=== PATIENT | male | born 1940 | race Caucasian/White ===

== ENCOUNTER 2016-12-03 19:29 | Emergency (ER) | payer MEDICARE ==
[~2016-12-03] VITALS: Ht 162.5 cm; Wt 48.1 kg
[~2016-12-03 19:29] MED LIST: AUGMENTIN 875 M1 TAB PO; BACTRIM DS 8001 TA1 PO; CIPRO250 MG PO; DARVOCET N 1001 TAB PO; DIAZEPAM5 MG PO; DOXYCYCLINE MO100 MG PO; METOCLOPRAMIDE5 MG PO; MIRALAX POWDER17 G1 PO; ORASONE5 MG PO; OXYCOD/APAP TAB 10- PO; PERCOCET 325 MG1 TAB PO; PYRIDIUM200 MG PO; TRAMADOL HCL50 MG PO; UNSURE OF MEDS; XANAX0.5 MG PO; XANAX1 MG PO
[2016-12-03] MEDS ORDERED: ANAPROX DS550 MG PO (22:54)
[2016-12-03] MEDS ORDERED: Orphenadrine C100 MG PO (22:54)
== END 2016-12-03 23:36 | disposition home or self-care (01) ==
LOC: ED 19:29
DX: M51.36 Other intervertebral disc degeneration, lumbar region (principal); R59.0 Localized enlarged lymph nodes; M79.604 Pain in right leg; F17.200 Nicotine dependence, unspecified, uncomplicated; Z79.899 Other long term (current) drug therapy; Z88.5 Allergy status to narcotic agent; Z86.718 Personal history of other venous thrombosis and embolism

== ENCOUNTER → 2016-12-07 | Outpatient (CLI) | payer MEDICARE ==
[~2016-12-07] MED LIST changes: +ANAPROX DS550 MG PO; +Orphenadrine C100 MG PO
[2016-12-07 08:19] LABS: BASO % 0.4 % (0.0-1.0); EOS # 0.3 10*3/uL (0.0-0.4); EOS % 3.4 % (1.0-4.0); HEMATOCRIT 48.6 % (42.0-52.0); HEMOGLOBIN 16.1 g/dl (14.0-18.0); LYMPH # 2.4 10*3/uL (1.3-4.4); LYMPH % 29.6 % (27.0-41.0); MEAN CELL VOLUME 91.5 fl (80.0-94.0); MEAN CORPUSCULAR HGB 30.3 pg (27.0-31.0); MEAN CORPUSCULAR HGB CONC 33.1 g/dl (33.0-37.0); MEAN PLATELET VOLUME 9.2 fl (9.6-12.3); MONO # 0.5 10*3/uL (0.1-1.0); MONO % 5.9 % (3.0-9.0); NEUT # 4.9 10*3/uL (2.3-7.9); NEUT % 60.5 % (47.0-73.0); PLATELET COUNT AUTOMATED 239 10*3/uL (130-400); RED BLOOD COUNT 5.31 10*6/uL (4.50-5.90); RED CELL DISTRI WIDTH 14.4 % (0-14.5)
[2016-12-07 08:48] LABS: ALBUMIN 3.4 gm/dl (3.1-4.5); ALKALINE PHOSPHATASE 84 U/L (45-117); BUN 16 mg/dl (7-24); CHLORIDE 106 mmol/L (98-107); CREATININE 1.01 mg/dL (0.70-1.30); POTASSIUM 4.4 mmol/L (3.5-5.1); SGOT/AST 12 IU/L (3-35); SGPT/ALT 9 U/L (12-78); SODIUM 138 mmol/L (136-145); TOTAL PROTEIN 7.4 gm/dL (6.4-8.2)
== END | disposition home or self-care (01) ==
LOC: LAB 07:52 → CT 08:00
PROVIDERS: Urology
DX: S33.39XA Dislocation of other parts of lumbar spine and pelvis, initial encounter (principal); C67.9 Malignant neoplasm of bladder, unspecified; D40.0 Neoplasm of uncertain behavior of prostate; M47.896 Other spondylosis, lumbar region; M41.86 Other forms of scoliosis, lumbar region; Y99.8 Other external cause status; Y92.89 Other specified places as the place of occurrence of the external cause; Y93.89 Activity, other specified; X58.XXXA Exposure to other specified factors, initial encounter

== ENCOUNTER → 2019-12-09 | Outpatient (CLI) | payer OTHER ==
[~2019-12-09] MED LIST changes: +ELIQUIS5 M1 PO; +TEMAZEPAM30 MG PO
== END | disposition home or self-care (01) ==
LOC: RAD 12:06 → LAB 12:06
PROVIDERS: ATTEND Nurse Practitioner Family
DX: H57.12 Ocular pain, left eye (principal)

== ENCOUNTER 2020-11-16 03:51 | Emergency (ER) | payer OTHER ==
[~2020-11-16] VITALS: Ht 162.5 cm; Wt 45.4 kg
[2020-11-16 04:14] LABS: BASO % 0.1 % (0.0-1.0); EOS % 0.3 % (1.0-4.0); HEMATOCRIT 41.1 % (42.0-52.0); LYMPH # 3.5 10*3/uL (1.3-4.4); LYMPH % 28.8 % (27.0-41.0); MEAN CELL VOLUME 97.6 fl (80.0-94.0); MEAN CORPUSCULAR HGB 30.2 pg (27.0-31.0); MEAN CORPUSCULAR HGB CONC 30.9 g/dl (33.0-37.0); MONO # 0.7 10*3/uL (0.1-1.0); MONO % 5.9 % (3.0-9.0); NEUT # 7.9 10*3/uL (2.3-7.9); NEUT % 64.6 % (47.0-73.0); PLATELET COUNT AUTOMATED 306 10*3/uL (130-400); RED BLOOD COUNT 4.21 10*6/uL (4.50-5.90); RED CELL DISTRI WIDTH 17.3 % (0-14.5); WHITE BLOOD COUNT 12.2 10*3/uL (4.8-10.8)
[2020-11-16 04:29] LABS: BUN 17 mg/dl (7-24); CHLORIDE 106 mmol/L (98-107); CREATININE 0.65 mg/dL (0.70-1.30); SODIUM 138 mmol/L (136-145)
[2020-11-16 06:17] LABS: BILIRUBIN Negative (Negative); BLOOD Trace-Intact (Negative); CLARITY Clear (Clear); COLOR Yellow (Yellow); GLUCOSE Negative (Negative); KETONE Negative (Negative); LEUKO ESTERASE Negative (Negative); NITRITE Negative (Negative)
[2020-11-16 06:38] LABS: RBC 0-2 rbc/hpf (0-2)
[2020-11-16 06:39] LABS: BACTERIA 1+; EPITHELIAL CELLS 0-2
== END 2020-11-16 07:38 | disposition home or self-care (01) ==
LOC: ED 03:51
PROVIDERS: Internal Medicine
DX: N99.528 Other complication of incontinent external stoma of urinary tract (principal); D72.829 Elevated white blood cell count, unspecified

== ENCOUNTER 2020-11-26 17:55 | Emergency (ER) | payer OTHER ==
[~2020-11-26] VITALS: Wt 45.4 kg
[2020-11-26 18:50] LABS: BASO % 0.2 % (0.0-1.0); EOS % 0.3 % (1.0-4.0); HEMATOCRIT 44.9 % (42.0-52.0); LYMPH # 3.2 10*3/uL (1.3-4.4); MEAN CORPUSCULAR HGB 29.1 pg (27.0-31.0); MEAN CORPUSCULAR HGB CONC 31.6 g/dl (33.0-37.0); MEAN PLATELET VOLUME 9.1 fl (9.6-12.3); MONO # 0.6 10*3/uL (0.1-1.0); MONO % 5.3 % (3.0-9.0); NEUT % 66.9 % (47.0-73.0); PLATELET COUNT AUTOMATED 246 10*3/uL (130-400); RED BLOOD COUNT 4.88 10*6/uL (4.50-5.90); RED CELL DISTRI WIDTH 15.9 % (0-14.5); WHITE BLOOD COUNT 11.9 10*3/uL (4.8-10.8)
[2020-11-26 19:03] LABS: ALBUMIN 2.7 gm/dl (3.1-4.5); ALKALINE PHOSPHATASE 110 U/L (45-117); BUN 16 mg/dl (7-24); CHLORIDE 103 mmol/L (98-107); CREATININE 0.85 mg/dL (0.70-1.30); LIPASE 86 U/L (73-393); SGOT/AST 16 IU/L (3-35); SGPT/ALT 15 U/L (12-78); SODIUM 136 mmol/L (136-145); TOTAL PROTEIN 7.2 gm/dL (6.4-8.2)
[2020-11-26 19:04] LABS: TROPONIN I < 0.015 ng/ml (<0.045)
== END 2020-11-26 21:00 | disposition left against medical advice (07) ==
LOC: ED 17:55
PROVIDERS: Physician Assistant
DX: R42 Dizziness and giddiness (principal); I73.9 Peripheral vascular disease, unspecified; Z86.73 Personal history of transient ischemic attack (TIA), and cerebral infarction without residual deficits; Z85.51 Personal history of malignant neoplasm of bladder; Z88.8 Allergy status to other drugs, medicaments and biological substances; Z88.6 Allergy status to analgesic agent; Z79.899 Other long term (current) drug therapy; Z79.2 Long term (current) use of antibiotics; Z86.718 Personal history of other venous thrombosis and embolism; Z93.6 Other artificial openings of urinary tract status